=== PATIENT | male | born 1945 | race Two or more races ===

== ENCOUNTER 2020-05-17 05:57 | Inpatient (IN) | payer MEDICAID, OTHER ==
[~2020-05-17] VITALS: Ht 165.1 cm; Wt 107.4 kg
[2020-05-17] MEDS ORDERED: MORPHINE SULFATE 4 MG/ML SYR/VIAL IV ONE (07:15)
[2020-05-17] MEDS ORDERED: SODIUM CHLORIDE 0.9% 1,000 ML IV ONE ×2 (07:15)
[2020-05-17] MEDS ORDERED: ONDANSETRON HCL 4 MG/2 ML VIAL IV ONE (07:15)
[2020-05-17 07:22] LABS: Basophils # (auto) 0.1 10 ^3/uL (0-0.2); Basophils % (auto) 0.4 % (0.0-2.0); Eosinophils # (auto) 0 10 ^3/uL (0-0.8); Eosinophils % (auto) 0.1 % (0.0-7.0); Hematocrit 48.1 % (41.0-53.0); Hemoglobin 16.2 g/dL (13.5-17.5); Lymphocytes % (auto) 7.9 % (10.0-50.0); Mean Corpuscular Hemoglobin 32.7 pg (28.0-32.0); Mean Corpuscular Hgb Conc. 33.7 g/dL (32.0-36.0); Monocytes # (auto) 0.3 10 ^3/uL (0-1.3); Monocytes % (auto) 2.6 % (0.0-12.0); Neutrophils # (auto) 10.8 10 ^3/uL (1.6-8.6); Platelet Count (auto) 236 10^3/uL (140-450); Red Blood Cells 4.96 10^6/uL (4.5-5.90); Red Cell Distribution Width 12.7 % (11.8-14.3); White Blood Cell 12.2 10^3/uL (4.4-10.8)
[2020-05-17 07:31] LABS: BUN/Creatinine Ratio 12.8; Calcium 9.5 mg/dL (8.5-10.1); Potassium 3.7 mmol/L (3.5-5.1)
[2020-05-17 07:34] LABS: Bilirubin, Total 0.8 mg/dL (0.2-1.0); Total Protein 8.2 g/dL (6.4-8.2)
[2020-05-17] MEDS ORDERED: PIPERACILLIN-TAZOB 3.375GM 100 ML IV ONE (09:00)
[2020-05-17] MEDS ORDERED: MORPHINE SULF INJ 2 MG/ML SYRINGE 1ML IV PRN ×3 (10:15→12:00)
[2020-05-17] MEDS ORDERED: NITROGLYCERIN 0.4 MG SL TAB SL PRN ×2 (10:15→12:00)
[2020-05-17] MEDS ORDERED: metroNIDAZOLE 500MG/100ML 100 ML IV ONE (11:45)
[2020-05-17] MEDS ORDERED: cefTRIAXone 1GM/50ML D5W 50 ML IV ONE (11:45)
[2020-05-17] MEDS ORDERED: hydrALAZINE HCL 25 MG TAB PO PRN (11:45)
[2020-05-17] MEDS ORDERED: LORazepam 0.5 MG TAB PO PRN (12:00)
[2020-05-17] MEDS ORDERED: HYDROcodone-ACET 5/325MG TAB PO PRN (12:00)
[2020-05-17] MEDS ORDERED: ALUM & MAG HYDROX-SIMETH LIQ(MAALOX) 30 ML PO PRN (12:00)
[2020-05-17] MEDS ORDERED: ACETAMINOPHEN 325 MG TAB PO PRN (12:00)
[2020-05-17] MEDS ORDERED: ONDANSETRON HCL 4 MG/2 ML VIAL IV PRN (12:00)
[2020-05-17 12:53] LABS: Cholesterol 164 mg/dL (< 200); HDL Cholesterol 57 mg/dL (40-59); LDL Cholesterol 104 mg/dL (< 100); Triglycerides 83 mg/dL (< 150)
[2020-05-17] MEDS: SODIUM CHLORIDE 0.9% 1,000 ML IV SCH (13:50)
[2020-05-17 13:57] LABS: Urine WBC None Seen /hpf (0 - 3)
[2020-05-17 14:13] LABS: Urine Bacteria NONE SEEN /hpf (None Seen); Urine Blood 3+ /uL (Negative); Urine Mucus FEW (None Seen); Urine Specific Gravity 1.018 (1.001-1.035)
[2020-05-17 14:56] LABS: Alcohol, Urine < 3.0 mg/dL (0-10); Amphetamine Screen, Urine NEGATIVE (NEGATIVE); Barbiturate Scree,Urine NEGATIVE (NEGATIVE); Benzodiazephine Screen, Urine NEGATIVE (NEGATIVE); Cannabinoid Screen, Urine NEGATIVE (NEGATIVE); Cocaine Screen, Urine NEGATIVE (NEGATIVE); Opiate Scree,Urine POSITIVE (NEGATIVE); Phencyclidine Screen, Urine NEGATIVE (NEGATIVE)
[2020-05-17 18:46] VITALS: BP 133/71
[2020-05-17] MEDS: metroNIDAZOLE 500MG/100ML 100 ML IV SCH (19:46)
[2020-05-17 20:00] VITALS: BP 152/75
[2020-05-17] MEDS: ATORVASTATIN 20 MG TAB PO SCH (21:21)
[2020-05-17] MEDS: FAMOTIDINE (10MG/ML) 2ML VL IV SCH (21:22)
[2020-05-17 22:00] VITALS: BP 152/75
[2020-05-17 22:35] LABS: Hematocrit 42.9 % (41.0-53.0)
[2020-05-18 02:00] LABS: Hematocrit 44.1 % (41.0-53.0); Hemoglobin 15.3 g/dL (13.5-17.5)
[2020-05-18] MEDS: metroNIDAZOLE 500MG/100ML 100 ML IV SCH ×3 (03:38→21:13)
[2020-05-18] MEDS: SODIUM CHLORIDE 0.9% 1,000 ML IV SCH ×2 (03:39→15:25)
[2020-05-18 05:00] VITALS: BP 113/69
[2020-05-18 06:38] LABS: Hemoglobin 14.7 g/dL (13.5-17.5)
[2020-05-18 08:34] VITALS: BP 132/80
[2020-05-18] MEDS ORDERED: ASPirin 81 mg TAB PO SCH (10:00)
[2020-05-18 11:32] LABS: Hematocrit 45.6 % (41.0-53.0); Hemoglobin 15.6 g/dL (13.5-17.5)
[2020-05-18 12:51] VITALS: BP 153/88
[2020-05-18] MEDS: cefTRIAXone 1GM/50ML D5W 50 ML IV SCH (13:30)
[2020-05-18] MEDS: FAMOTIDINE (10MG/ML) 2ML VL IV SCH ×2 (13:58→23:38)
[2020-05-18 14:08] LABS: Hematocrit 45.3 % (41.0-53.0); Hemoglobin 15.5 g/dL (13.5-17.5)
[2020-05-18 17:45] LABS: Hematocrit 44.6 % (41.0-53.0); Hemoglobin 15.4 g/dL (13.5-17.5)
[2020-05-18 20:00] VITALS: BP 146/86
[2020-05-18 22:02] LABS: Hematocrit 42.8 % (41.0-53.0); Hemoglobin 15.1 g/dL (13.5-17.5)
[2020-05-18 22:54] VITALS: BP 147/86
[2020-05-18] MEDS: ATORVASTATIN 20 MG TAB PO SCH (23:38)
[2020-05-19] MEDS: SODIUM CHLORIDE 0.9% 1,000 ML IV SCH (03:55)
[2020-05-19] MEDS: metroNIDAZOLE 500MG/100ML 100 ML IV SCH ×2 (04:00→12:58)
[2020-05-19 05:32] VITALS: BP 135/87
[2020-05-19 06:44] LABS: Basophils # (auto) 0 10 ^3/uL (0-0.2); Eosinophils # (auto) 0.1 10 ^3/uL (0-0.8); Lymphocytes # (auto) 1.3 10 ^3/uL (0.4-5.4); Monocytes # (auto) 0.5 10 ^3/uL (0-1.3); Nucleated Red Blood Cells % 0.1 %
[2020-05-19 06:46] LABS: Basophils % (auto) 0.4 % (0.0-2.0); Lymphocytes % (auto) 18.3 % (10.0-50.0); Mean Corpuscular Hemoglobin 33.8 pg (28.0-32.0); Mean Corpuscular Volume 96.5 fL (80.0-100.0); Monocytes % (auto) 7.4 % (0.0-12.0); Neutrophils % (auto) 72.9 % (37.0-80.0); Platelet Count (auto) 196 10^3/uL (140-450); Red Blood Cells 4.46 10^6/uL (4.5-5.90); White Blood Cell 6.9 10^3/uL (4.4-10.8)
[2020-05-19 06:57] LABS: Calcium 8.5 mg/dL (8.5-10.1); Potassium 3.5 mmol/L (3.5-5.1)
[2020-05-19 06:59] LABS: BUN/Creatinine Ratio 15.6
[2020-05-19 09:00] VITALS: BP 135/72
[2020-05-19] MEDS: cefTRIAXone 1GM/50ML D5W 50 ML IV SCH (10:19)
[2020-05-19] MEDS: FAMOTIDINE (10MG/ML) 2ML VL IV SCH (10:20)
[2020-05-19] MEDS ORDERED: PANT40TA2 PO (12:58)
[2020-05-19] MEDS ORDERED: LEVO-28 PO (12:58)
[2020-05-19] MEDS ORDERED: AMLO5TAB15 PO (12:58)
[2020-05-19] MEDS ORDERED: TAM04C PO (12:58)
[2020-05-19] MEDS ORDERED: METR500T PO (12:58)
[2020-05-19 13:00] VITALS: BP 148/92
[2020-05-19 14:13] VITALS: BP 148/92
[2020-05-19 16:39] LABS: INR 1.02 (0.9-1.15); Partial Thromboplastin Time 28.5 sec (23.0-31.2)
== END 2020-05-19 15:30 | disposition home or self-care (01) | DRG 446 ==
LOC: ER 05:57 → TELE 05:58 → TELE-WESTW 17:19
PROVIDERS: ADMIT Hospitalist; ATTEND Hospitalist
DX: K81.0 Acute cholecystitis (principal); E86.0 Dehydration; I11.9 Hypertensive heart disease without heart failure; K57.30 Diverticulosis of large intestine without perforation or abscess without bleeding; E78.5 Hyperlipidemia, unspecified; N28.89 Other specified disorders of kidney and ureter; N40.1 Benign prostatic hyperplasia with lower urinary tract symptoms; R31.0 Gross hematuria; Z20.828 Contact with and (suspected) exposure to other viral communicable diseases; R73.9 Hyperglycemia, unspecified; E66.01 Morbid (severe) obesity due to excess calories; Z68.39 Body mass index [BMI] 39.0-39.9, adult
CPT/HCPCS: 36415; 51702; 71045; 74176; 76700; 78226; 80048; 80053; 80061; 80307; 81001; 82150; 83036; 83605; 83690; 83880; 84154; 84484; 85014; 85018; 85025; 85610; 85730; 86850; 86900; 86901; 87040; 87086; 87426; 93306; 96361; 96365; 96367; 96368; 96375; G0378; J0696; J2405; J2543; J3490